=== PATIENT | female | born 1960 | race Caucasian/White ===

== ENCOUNTER → 2018-05-31 12:17 | Outpatient (CLI) | payer OTHER, SELFPAY ==
--- NOTE | 2018-05-31 | DI.MRI.S_ITS ---
PROCEDURE: MR HEAD/BRAIN WO/W CON INDICATIONS: DIZZINESS AND GIDDINESS TECHNIQUE: Noncontrast sagittal T1 spin echo, axial T2 fast spin echo, axial FLAIR, axial gradient echo, axial diffusion and ADC through the brain. Axial/sagittal/coronal 3-D CISS, thin-slice axial T1 spin echo with fat saturation through the skull base. After the administration of contrast, axial and coronal thin-slice T1 spin echo with fat saturation through the skull base, axial T1 spin echo with fat saturation through the brain. COMPARISON: None. FINDINGS: Image quality: Excellent. Cranial nerves: Visualized cranial nerves demonstrate no abnormal signal, mass lesion or enhancement. Cerebellopontine angles are unremarkable. CSF spaces: Ventricles are normal in size and shape. No extra-axial fluid collections. Basal cisterns are patent. Brain: No intracranial bleeds or mass effects. No abnormal intracranial enhancement. Diffusion weighted images show no acute ischemic insults. Waite-white matter interface is intact. Brainstem is normal. Normal intravascular flow voids are present. Skull and face: Calvarial marrow signal is normal. Orbits appear normal. Sinuses: Sinuses and mastoids appear clear. IMPRESSION: 1. No acute intracranial process. Dictated by: Mckenna Sandra M.D. on 05/31/2018 at 15:08 Approved by: Mckenna Sandra M.D. on 05/31/2018 at 15:19
== END ==
PROVIDERS: PCP General Practice; Visit Provider General Practice
DX: R42 Dizziness and giddiness (principal)
CPT/HCPCS: 70553; A9579

== ENCOUNTER → 2019-01-24 10:13 | Outpatient (CLI) | payer OTHER, SELFPAY ==
--- NOTE | 2019-01-24 11:02 | DI.CT.S_ITS ---
PROCEDURE: CT ABDOMEN PELVIS W CON INDICATIONS: Unspecified abdominal pain TECHNIQUE: After the administration of oral and intravenous contrast, 5 mm thick sections acquired from the diaphragms to the symphysis. 5 mm thick coronal and sagittal reformats were performed. For radiation dose reduction, the following was used: automated exposure control, adjustment of mA and/or kV according to patient size. COMPARISON: None. FINDINGS: Image quality: Excellent. ABDOMEN: Lung bases: Lung bases are clear. Heart size is normal. Solid organs: Liver is normal in size and enhancement. Gallbladder is partially contracted. Biliary system is non-dilated. Pancreas enhances normally. Spleen is normal in size and enhancement. No adrenal nodules. Kidneys are normal in size and enhancement, without hydronephrosis. There is an extrarenal pelvis on the left. Peritoneum and bowel: Stomach, small bowel, and colon loops are normal in caliber and wall thickness. No free fluid or air. Nodes and vessels: No retroperitoneal or mesenteric adenopathy. Aorta and inferior vena cava are normal in caliber. Miscellaneous: No ventral hernias. PELVIS: Genitourinary: Bladder wall thickness is normal. Miscellaneous: No inguinal hernias or adenopathy. A normal or abnormal appendix could not be located at the right lower quadrant. Bones: No suspicious bony lesions. No vertebral body compression fractures. IMPRESSION: No inflammatory change or evidence of underlying neoplasm is seen. The gallbladder is relatively contracted. No gallbladder inflammation is present. A normal or abnormal appendix could not be located but no secondary CT evidence of appendicitis at the right lower quadrant is found. There is mild diverticulosis involving the sigmoid colon but no acute diverticulitis. Dictated by: Sergio Roche M.D. on 01/24/2019 at 17:27 Approved by: Sergio Roche M.D. on 01/24/2019 at 17:30
== END ==
PROVIDERS: PCP General Practice; Visit Provider Internal Medicine
DX: R10.9 Unspecified abdominal pain (principal); K57.30 Diverticulosis of large intestine without perforation or abscess without bleeding
CPT/HCPCS: 74177; Q9967

== ENCOUNTER 2019-10-13 21:57 | Emergency (ER) | payer OTHER, SELFPAY ==
[2019-10-13 22:07] VITALS: BP 170/85; PULSE 79; RESP 16; TEMP 36.6; O2SAT 98
--- NOTE | 2019-10-13 22:14 | DI.CT.S_ITS ---
PROCEDURE: CT ABDOMEN PELVIS WO CON INDICATIONS: severe pain TECHNIQUE: Noncontrast 5 mm thick sections acquired from the diaphragms to the symphysis. 5 mm coronal and sagittal reformats were then performed. For radiation dose reduction, the following was used: automated exposure control, adjustment of mA and/or kV according to patient size. COMPARISON: [facility], US, US ABDOMEN LIMITED, 10/14/2019, 0:04. [facility], CT, CT ABDOMEN PELVIS W CON, 01/24/2019, 11:14. FINDINGS: Image quality: Excellent. ABDOMEN: Lung bases: Lung bases are clear. Heart size is normal. Solid organs: Hepatic steatosis. Liver is normal in size. Gallbladder is normal. Pancreas is normal in contours. Spleen is normal in size. No adrenal nodules. Kidneys are normal in size. There is mild left renal pelviectasis with normal caliber of the left ureter suggesting mild UPJ obstruction. No nephrolithiasis. Peritoneum and bowel: Unenhanced bowel loops demonstrate normal wall thickness and caliber. There are colonic diverticula. No free fluid or air. Nodes and vessels: No retroperitoneal or mesenteric adenopathy by size criteria. Aorta and inferior vena cava are normal in caliber. Miscellaneous: No ventral hernias. PELVIS: Genitourinary: Bladder wall thickness is normal. Miscellaneous: No inguinal hernias or adenopathy. Bones: No suspicious bony lesions. No vertebral body compression fractures. IMPRESSION: 1. Mild left UPJ obstruction. 2. Diverticulosis without diverticulitis. 3. Hepatic steatosis. 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 Dictated by: Russ Lares M.D. on 10/14/2019 at 7:56 Approved by: Russ Lares M.D. on 10/14/2019 at 8:10
[2019-10-13 22:44] LABS: Add Manual Diff / Slide Review NO; Basophils Absolute Auto 100 /uL (0-100); Basophils Percent Auto 1.3 % (0-2); Eosinophils Absolute Auto 500 /uL (0-450); Hematocrit 44.2 % (36-46); Hemoglobin 15.1 g/dL (12.0-16.0); Lymphocytes Absolute Auto 3500 /uL (1100-4500); Lymphocytes Percent Auto 36.8 % (25-40); Mean Corpuscular HGB Conc 34.2 % (30-36); Mean Corpuscular Hemoglobin 30.5 PG (26-34); Mean Corpuscular Volume 89.4 fL (80-100); Monocytes Absolute Auto 800 /uL (0-900); Monocytes Percent Auto 8.4 % (3-14); Neutrophils Absolute Auto 4600 /uL (1500-7000); Neutrophils Percent Auto 48.5 % (50-75); Platelet Count 223 X10^3/uL (150-400); Red Blood Cell Count 4.95 X10^6/uL (4.0-5.2); Red Cell Distribution Width 13.5 % (11.6-14.8); White Blood Cell Count 9.6 X10^3/uL (4.5-11.0)
[2019-10-13 22:56] LABS: Alanine Aminotransferase 102 IU/L (<35); Albumin 4.9 g/dL (3.5-5.0); Albumin Globulin Ratio 1.5 (1.0-2.8); Alkaline Phosphatase 80 U/L (38-126); Aspartate Aminotransferase 85 IU/L (14-36); BUN Creatinine Ratio 14.4 (6-22); Bilirubin Total 0.7 mg/dL (0.2-1.3); Blood Urea Nitrogen 13 mg/dL (7-17); Calcium 10.4 mg/dL (8.4-10.2); Carbon Dioxide 30 mmol/L (22-32); Chloride 99 mmol/L (98-107); Estimated Glomerular Filt Rate > 60.0 mL/min (>60); Globulin 3.3 g/dL (1.7-4.1); Glucose 141 mg/dL (70-100); HEMOLYSIS < 15 (0-50); Potassium 4.8 mmol/L (3.4-5.1); Sodium 138 mmol/L (137-145); Total Protein 8.2 g/dL (6.3-8.2)
[2019-10-13 23:19] LABS: Lipase 683 U/L (23-300)
--- NOTE | 2019-10-13 23:36 | DI.US.S_ITS ---
PROCEDURE: US ABDOMEN LIMITED INDICATIONS: UPPER ABDOMINAL PAIN TECHNIQUE: Real-time focused scanning was performed of the right upper quadrant of abdomen, with image documentation. COMPARISON: None. FINDINGS: Technically suboptimal study secondary to body habitus and lack of good acoustic windows. The liver is moderately diffusely hyperechoic and difficult to penetrate with ultrasound. It measures about 15.5 cm in length. Extrahepatic common duct is normal caliber at 5.1 mm. The gallbladder appears grossly normal without stones, sludge, or wall thickening. No pericholecystic fluid or Lawton's sign. The visible portions of the right kidney are within normal limits. The pancreas was not visible. No free fluid in the abdomen. IMPRESSION: 1. Moderate hepatic steatosis or other intrinsic liver disease. 2. Normal gallbladder. Dictated by: Priya Castillo M.D. on 10/14/2019 at 8:12 Approved by: Priya Castillo M.D. on 10/14/2019 at 8:15
--- NOTE | 2019-10-14 00:14 | ED.ABDPAIN ---
HPI - Abdominal Pain General Chief Complaint: Abdominal Pain Stated Complaint: upper stomach issues, passing some odd things Time Seen by Provider: 10/13/19 22:00 Source: patient Mode of arrival: Ambulatory Limitations: no limitations History of Present Illness HPI narrative: 58-year-old female nonsmoker and occasional drinker presents with family and a chief complaint of approximately 1 year of vague abdominal complaints including generalized abdominal discomfort without any obvious provocation or palliation. She states that frequently moves in is not routinely in this same spot. She states that she has trouble alternating between diarrhea and constipation. She denies any blood in her stool nor fever or chills. She is not currently having much in the way of significant symptoms. She does have an odd scenario in which she will have a day of significant epigastric pain and then the following day in her stool she passes these grape sized saw off yellowish ?globs ?in her stool. She brought 2 of them today which have been sent to the lab. She denies any history of interaction with Gastroenterology. [place] and they're making no progress. MD complaint: abdominal pain Onset (ago): year(s) Pain Consistency: intermittent and now resolved Location: diffuse Severity: moderate Quality: cramping Radiation: none Migration to: no migration Relieving factors: nothing Exacerbating factors: nothing Associated symptoms: nausea, diarrhea and constipation Review of Systems Constitutional Constitutional: Denies chills, Denies fatigue, Denies fever(s), Denies frequent falls, Denies lethargy and Denies weakness Eyes Eyes: Denies change in vision, Denies eye discharge, Denies irritation and Denies loss of vision ENT Ears, Nose, Mouth, and Throat: Denies change in voice, Denies dizziness, Denies neck pain, Denies sore throat and Denies throat swelling Cardiovascular Cardiovascular: Denies chest pain, Denies irregular heart rhythm, Denies lightheadedness, Denies palpitations, Denies dyspnea, Denies dyspnea on exertion and Denies orthopnea Respiratory Respiratory: Denies cough, Denies dyspnea, Denies dyspnea on exertion and Denies wheezing Gastrointestinal Gastrointestinal: Reports abdominal pain, Denies change in bowel habits, Reports constipation, Reports diarrhea, Reports nausea and Denies vomiting Genitourinary Genitourinary: Denies hematuria, Denies flank pain, Denies urinary incontinence and Denies urinary urgency Musculoskeletal Musculoskeletal: Denies back pain, Denies muscle weakness, Denies neck pain, Denies numbness and Denies tingling Integumentary/Breasts Skin/Breast: Denies pruritus, Denies erythema, Denies rash and Denies wounds Neurologic Neurologic: Denies behavioral changes, Denies confusion, Denies dizziness, Denies frequent falls, Denies loss of vision, Denies numbness, Denies tingling and Denies weakness Psychiatric Psychiatric: Denies anxiety, Denies behavioral changes, Denies confusion, Denies depression, Denies homicidal ideation and Denies suicidal ideation Endocrine Endocrine: Denies fatigue, Denies flushing and Denies palpitations Hematologic/Lymphatic Hematologic/Lymphatic: Denies easy bruising Allergic/Immunologic Allergic/Immunologic: Denies urticaria, Denies throat swelling and Denies wheezing Patient History alcohol intake frequency: a few times a week Alcohol type: wine Substance Use Type: does not use Exam Narrative Exam Narrative: GENERAL: [58] year old patient appears stated age. Well-nourished, well-developed patient, in mild distress. HEAD: Atraumatic. Normocephalic. EYES: Pupils equal round and reactive. Extraocular motions intact. No scleral icterus. No injection or drainage. ENT: Nose without bleeding, purulent drainage. Throat without erythema, tonsillar hypertrophy or exudate. Airway patent. NECK: Trachea midline. Non tender CARDIOVASCULAR: Regular rate and rhythm without murmurs, gallops, or rubs. RESPIRATORY: Clear to auscultation. Breath sounds equal bilaterally. No wheezes, rales, or rhonchi. GASTROINTESTINAL: Abdomen soft, obese non-tender, nondistended. EXTREMITIES: No edema or joint tenderness. BACK: Nontender without deformity or crepitance. No flank tenderness. NEURO: AOx3. SKIN: No rash or erythema of visible areas Initial Vital Signs Initial Vital Signs: Vital Signs Temperature 97.9 F 10/13/19 22:07 Pulse Rate 79 10/13/19 22:07 Respiratory Rate 16 10/13/19 22:07 Blood Pressure 170/85 H 10/13/19 22:07 Pulse Oximetry 98 10/13/19 22:07 Course Orders Ordered: ED Orders 10/13/19 22:14 CT abdomen pelvis wo con Stat 10/13/19 22:35 Complete Blood Count AUTO DIFF Stat Comprehensive Metabolic Panel Stat 12/26/19 23:07 Lipase Stat 10/13/19 23:36 US abdomen limited Stat Vital Signs Vital signs: Vital Signs - 8 hr 10/13/19 22:07 10/14/19 00:24 10/14/19 00:28 Temperature 97.9 F 97.8 F Pulse Rate 79 61 67 Respiratory Rate 16 20 Blood Pressure 170/85 H 145/77 H Blood Pressure [Left Arm] 145/77 H Pulse Oximetry 98 99 96 MDM - Abdominal Pain Lab Data Result diagrams: 10/13/19 22:35 10/13/19 22:35 Labs: Lab Results 10/13/19 10/13/19 10/13/19 Range/Units 22:35 22:35 23:07 WBC 9.6 (4.5-11.0) X10^3/uL RBC 4.95 (4.0-5.2) X10^6/uL Hgb 15.1 (12.0-16.0) g/dL Hct 44.2 (36-46) % MCV 89.4 (80-100) fL MCH 30.5 (26-34) PG MCHC 34.2 (30-36) % RDW 13.5 (11.6-14.8) % Plt Count 223 (150-400) X10^3/uL Neut % (Auto) 48.5 L (50-75) % Lymph % (Auto) 36.8 (25-40) % Hawkins % (Auto) 8.4 (3-14) % Eos % (Auto) 5.0 H (2-4) % Baso % (Auto) 1.3 (0-2) % Neut # (Auto) 4600 (9436-7777) /uL Lymph # (Auto) 3500 (9979-3627) /uL Hawkins # (Auto) 800 (0-900) /uL Eos # (Auto) 500 H (0-450) /uL Baso # (Auto) 100 (0-100) /uL Sodium 138 (137-145) mmol/L Potassium 4.8 (3.4-5.1) mmol/L Chloride 99 (98-107) mmol/L Carbon Dioxide 30 (22-32) mmol/L BUN 13 (7-17) mg/dL Creatinine 0.90 (0.52-1.04) mg/dL Estimated GFR > 60.0 (>60) mL/min BUN/Creatinine Ratio 14.4 (6-22) Glucose 141 H (70-100) mg/dL Calcium 10.4 H (8.4-10.2) mg/dL Total Bilirubin 0.7 (0.2-1.3) mg/dL AST 85 H (14-36) IU/L ALT 102 H (<35) IU/L Alkaline Phosphatase 80 (38-126) U/L Total Protein 8.2 (6.3-8.2) g/dL Albumin 4.9 (3.5-5.0) g/dL Globulin 3.3 (1.7-4.1) g/dL Albumin/Globulin Ratio 1.5 (1.0-2.8) Lipase 683 H (23-300) U/L MDM Narrative Medical decision making narrative: Patient has had multiple vague GI complaints over the past year and multiple evaluations without significant findings. Her symptoms follow no significant pattern and has no obvious provocation or palliation. Her lipase is elevated but she has no significant epigastric pain. Ultrasound shows no evidence of gallstone or biliary disease. Pain labs are otherwise relatively reassuring as is her exam. The stool sample was sent to the lab and will likely be sent out for ova and parasites. Return precautions given and questions answered to her apparent satisfaction. Seems reasonable to consider a GI consultation as an outpatient, in a nonemergent fashion, as the patient likely needs colonoscopy Discharge Plan Departure Patient Disposition: Home Clinical Impression: Pancreatitis Qualifiers: Chronicity: chronic Pancreatitis type: unspecified pancreatitis type Qualified Code(s): K86.1 - Other chronic pancreatitis Discharge Date/Time: 10/14/19 00:28 Instructions: DI for Abdominal Pain-Adult Activity Restrictions/Additional Instructions: *You have been diagnosed with [chronic abdominal pain, pancreatitis] *What to do: *Take medications as directed *Follow up with your primary care provider in 2-3 days, call for an appointment. Let them know you were seen in the Emergency Department and that we ask that you be seen in follow up *Return to ER if you should have any new, worsening or concerning symptoms Referrals: Kush Payton MD [Primary Care Provider] -
[2019-10-14 00:24] VITALS: BP 145/77; PULSE 61; RESP 20; TEMP 36.6; O2SAT 99
[2019-10-14 00:28] VITALS: BP 145/77; PULSE 67; O2SAT 96
== END 2019-10-14 00:28 | disposition home or self-care (01) ==
PROVIDERS: Emergency Provider Emergency Medicine; PCP General Practice
DX: K86.1 Other chronic pancreatitis (principal); R19.7 Diarrhea, unspecified; K59.00 Constipation, unspecified
CPT/HCPCS: 36415; 74176; 76705; 80053; 83690; 85025; 87177; 99282; 99284

== ENCOUNTER → 2019-11-29 11:10 | Outpatient (CLI) | payer OTHER, SELFPAY ==
[2019-11-29 15:55] LABS: Hep C Virus Ab w/Reflex Quant NEGATIVE s/c (NEGATIVE)
[2019-11-30 15:03] LABS: Hepatitis A Antibody IgM Nonreactive (Nonreactive)
[2019-12-01 15:25] LABS: Ceruloplasmin 32 mg/dL (18-53)
[2019-12-02 07:40] LABS: Alpha 1 Anti Trypsin 143 mg/dL (83-199)
[2019-12-02 09:22] LABS: Hepatitis A Antibody IgM NONREACTIVE; Hepatitis Acute Panel Interp 0.01; Hepatitis B Core Antibody IgM NONREACTIVE; Hepatitis B Surface Antigen NONREACTIVE; Hepatitis C Antibody NONREACTIVE
[2019-12-02 10:37] LABS: Anti Mitochondrial ABY IGG < 20.1 Units (< 20.1)
[2019-12-02 14:21] LABS: Hepatitis A Antibody Total Nonreactive (Nonreactive); Hepatitis B Core IgM Nonreactive (Nonreactive)
[2019-12-07 12:48] LABS: Hepatitis B Surf AB Quant <5
== END ==
PROVIDERS: PCP Family Medicine; Referring Provider Internal Medicine Gastroenterology; Visit Provider Internal Medicine Gastroenterology
DX: K85.90 Acute pancreatitis without necrosis or infection, unspecified (principal); R74.0 Nonspecific elevation of levels of transaminase and lactic acid dehydrogenase [LDH]; K76.0 Fatty (change of) liver, not elsewhere classified
CPT/HCPCS: 36415; 80074; 82103; 82390; 83516; 86255; 86705; 86706; 86708; 86709; 86803; 87340

== ENCOUNTER → 2022-10-27 13:16 | Outpatient (CLI) | payer OTHER, SELFPAY ==
--- NOTE | 2022-10-27 13:18 | DI.MRI.S_ITS ---
PROCEDURE: MR ABDOMEN WO/W CON INDICATIONS: Personal history of other diseases of the digestive TECHNIQUE: Coronal HASTE, axial 2D FLASH in- and [id number]; axial breath-hold T2 FSE. Dynamic axial VIBE during the administration of contrast; post-contrast coronal VIBE or 2D FLASH with fat saturation from the hepatic dome to the iliac crests. Optional diffusion weighted imaging and ADC may be performed. COMPARISON: [facility], CT, CT ABDOMEN PELVIS W CON, 01/24/2019, 11:14. [facility], CT, CT ABDOMEN PELVIS WO CON, 10/13/2019, 22:19. FINDINGS: Image quality: Excellent. Lung bases: No basal pleural effusions. Heart size is normal. Solid organs: The liver is normal size with a smooth margin. There is moderate diffuse signal loss on T1 out of phase imaging indicating steatosis. Trace relative hyperintensity at the gallbladder fossa. The gallbladder is present. No pericholecystic edema or wall thickening. The biliary tree is nondilated. The pancreas is normal size. The duct is nondilated. There is pancreas divisum morphology. No peripancreatic edema. Spleen and adrenal glands are normal. Mild left-sided hydronephrosis without hydroureter. Subcentimeter left lower pole cortical cyst. The right kidney is normal. There is symmetric renal enhancement. Nodes and vessels: No retroperitoneal or mesenteric adenopathy by size criteria. Aorta and inferior vena cava are normal in size. Bowel and peritoneum: Unenhanced bowel loops are normal in caliber. No free fluid. Bones and soft tissues: No ventral hernias. Bone marrow is normal in overall signal. IMPRESSION: 1. Moderate hepatic steatosis. 2. Mild right hydronephrosis without hydroureter. This is relatively stable compared to prior studies from 2019 and is likely related to partial UPJ obstruction. Dictated by: Priya Castillo M.D. on 10/30/2022 at 9:43 Approved by: Priya Castillo M.D. on 10/30/2022 at 9:50
== END ==
PROVIDERS: PCP Family Medicine; Referring Provider Family Medicine; Visit Provider Family Medicine
DX: N13.30 Unspecified hydronephrosis (principal); K76.0 Fatty (change of) liver, not elsewhere classified; R10.9 Unspecified abdominal pain; Z87.19 Personal history of other diseases of the digestive system
CPT/HCPCS: 74183; A9579

== ENCOUNTER → 2022-10-28 12:39 | Outpatient (CLI) | payer OTHER, SELFPAY ==
--- NOTE | 2022-10-28 12:41 | DI.MRI.S_ITS ---
PROCEDURE: MR PELVIS WO/W CON INDICATIONS: Personal history of other diseases of the digestiv TECHNIQUE: Coronal HASTE, sagittal breath-hold T2 FSE; axial T1 FSE with and without fat saturation through the pelvis. Optional long- and short-axis uterine nonbreath-hold T2 FSE through the uterus. Sagittal or axial dynamic VIBE during administration of contrast. Post-contrast axial or coronal VIBE/2-D FLASH with fat saturation from the iliac crests to the symphysis. Optional diffusion weighted imaging and ADC may be performed. COMPARISON: None FINDINGS: Image quality: Good Lower abdomen: Abdominal MRI findings are separately dictated. No bowel obstruction or pathologic ascites. Bladder: Bladder is distended. No focal lesion identified. This is not well evaluated on imaging however. Reproductive organs: Junctional zone is within normal limits. There are small nabothian cysts in the cervix. No pathologic dilation or thickening of the endometrium. The thickest portion with T2 signal measures 2-3 mm. The ovaries are not well characterized, probably atrophic. Rectum: Unremarkable. Colonic diverticula. Vessels and lymph nodes: No aneurysm. No lymphadenopathy. Pelvic wall: Unremarkable Bones: No acute or suspicious osseous abnormality. IMPRESSION: No acute pelvic pathology. Abdominal findings are separately dictated. Dictated by: Griffin Milan M.D. on 10/28/2022 at 16:00 Approved by: Griffin Milan M.D. on 10/28/2022 at 16:04
== END ==
PROVIDERS: PCP Family Medicine; Referring Provider Family Medicine; Visit Provider Family Medicine
DX: N32.89 Other specified disorders of bladder (principal); N88.8 Other specified noninflammatory disorders of cervix uteri; K57.90 Diverticulosis of intestine, part unspecified, without perforation or abscess without bleeding; R10.9 Unspecified abdominal pain; Z87.19 Personal history of other diseases of the digestive system
CPT/HCPCS: 72197; A9579